=== PATIENT | male | born 1975 | race African-American/Black ===

== ENCOUNTER 2019-11-18 16:34 | Emergency (ER) | payer OTHER ==
--- NOTE | 2019-11-18 18:00 | PDOC ---
History of Present Illness - General Chief Complaint: Suicidal Stated Complaint: TOO MUCH ECSTASY Time Seen by Provider: 11/18/19 16:37 - History of Present Illness Initial Comments: 11/18/19 17:50 44yo M BIBEMS after he called 911 complaining that he took "too much ecstasy," and he now endorses, SI/HI and auditory/visual hallucinations. He states he normally takes two ecstasy pills per day, and took 3 yesterday and 2 this mo rning. He also reports cannabis use. He occasionally takes benzodiazapines given to him by his moither for "anxiety," which he states he gets sometijmes when he takes too much ecstacy. At present, he endorses SI without at plan, and well as HI without plan. He endorses AH of people chasing after him to hurt him, and VH of him hurting other people and "crushing their bones." ROS torres-positive. States he recently became homeless because of his drug use. States he was admitted for detox on [facility] a few years ago, but does not follow up with any doctors currently. PMH/PSH: as above Meds/Allergies: denies ROS: torres positive PE GENERAL: Awake, alert, and fully oriented, in no acute distress, intoxicated HEAD: No signs of trauma, normocephalic, atraumatic EYES: PERRLA, EOMI, sclera anicteric, conjunctiva clear ENT: Auricles normal inspection, hearing grossly normal, nares patent, orophary nx clear without exudates. Moist mucosa NECK: Normal ROM, supple, no lymphadenopathy, JVD, or masses LUNGS: No distress, speaks full sentences, clear to auscultation bilaterally HEART: Regular rate and rhythm, normal S1 and S2, no murmurs, rubs or gallops, peripheral pulses normal and equal bilaterally. ABDOMEN: Soft, nontender, normoactive bowel sounds. No guarding, no rebound. No masses EXTREMITIES : Normal inspection, Normal range of motion, no edema. No clubbing or cyanosis. NEUROLOGICAL: Cranial nerves II through XII grossly intact. Normal speech, no focal sensorimotor deficits. No rigidity, hyperreflexia, or clonus. SKIN: Warm, Dry, normal turgor, no rashes or lesions noted Vital Signs Temp Pulse Resp BP Pulse Ox 98.6 F 92 H 20 154/101 H 100 11/18/19 16:47 11/18/19 16:47 11/18/19 16:47 11/18/19 16:47 11/18/19 16:47 44yo M BIBEMS after he called 911 complaining that he took "too much ecstasy," and he now endorses, SI/HI and auditory/visual hallucinations. Vitals reassuring. No clinical signs of serotonin syndrome or NMS. Differential includes acute intoxication vs. psychogenic SI/HI and hallucinations. -EKG -Labs: CBC, CMP, trops, coags, UA, drug screen, alcohol, salicylates, acetaminophen -1000ml NS -Ativan 2mg PO EKG NSR, rate 67, normal axis and intervals, no ST or T wave changes Patient states to the attending that he does not have SI/HI or hallucinations and just called 911 and came in because he wants rehab. 11/19/19 00:03 Patient is s/p 2mg PO ativan and is sleeping. Tried waking him to reasess, but he was very drowsy. Repeat vitals Last Vital Signs Temp Pulse Resp BP Pulse Ox 98.6 F 68 18 96/64 99 11/18/19 16:47 11/18/19 23:38 11/18/19 23:38 11/18/19 23:38 11/18/19 23:38 Will give another liter of fluids. Dispo pending reassessment. Psych vs. outpatient rehab Signed out to night team 11/19/19 00:06 Past History - Medical History Allergies/Adverse Reactions: Allergies Allergy/AdvReac Type Severity Reaction Status Date / Time No Known Allergies Allergy Verified 11/18/19 16:46 Home Medications: Ambulatory Orders clonazePAM [Klonopin -] mg PO PRN PRN 11/18/19 COPD: No - Psycho-Social/Smoking History Smoking History: Current some day smoker Information on smoking cessation initiated: No - Substance Abuse Hx (Audit-C & DAST Scrn) How often the patient has a drink containing alcohol: 2-4 times / month Number of drinks the patient has on a typical day: 5 or 6 How often the patient has six or more drinks on one occasion: Less than monthly Score: In Men: 4 or > Positive; In Women: 3 or > Positive: 5 Screen Result (Pos requires Nsg. Audit-10AR): Positive In the last yr the pt used illegal drug/Rx for NonMed reason: Yes Score: Yes response is considered Positive: 1 Screen Result (Positive result requires Nsg. DAST-10): Positive *Physical Exam - Vital Signs Last Vital Signs Temp Pulse Resp BP Pulse Ox 98.6 F 92 H 20 154/101 H 100 11/18/19 16:47 11/18/19 16:47 11/18/19 16:47 11/18/19 16:47 11/18/19 16:47 ED Treatment Course - LABORATORY CBC & Chemistry Diagram: 11/18/19 18:02 11/18/19 18:02 Discharge - Discharge Information Problems reviewed: Yes Clinical Impression/Diagnosis: MDMA abuse - Follow up/Referral - Patient Discharge Instructions - Post Discharge Activity Work/Back to School Note: My Personal Safety Plan
[2019-11-18] MEDS ORDERED: SODIUM CHLORIDE 0.9% 500 ML INFUS.BAG IV ONE ×2 (18:06→19:39)
[2019-11-18 18:10] LABS: BASO % 0.4 % (0-2.0); EOS % 0.8 % (0-4.5); HEMATOCRIT 44.3 % (35.4-49); HEMOGLOBIN 15.1 GM/dL (11.7-16.9); MCHC 34.1 g/dl (32.0-35.9); MEAN CELL VOLUME 93.9 fl (80-96); MEAN PLT VOLUME 7.8 fl (7.5-11.1); MONO % 8.5 % (3.8-10.2); NEUT % 65.3 % (42.8-82.8); PLATELET COUNT 186 K/MM3 (134-434); RBC 4.72 M/mm3 (4.00-5.60); RDW 12.8 % (11.9-15.9); WHITE BLOOD COUNT 6.8 K/mm3 (4.0-10.0)
[2019-11-18] MEDS ORDERED: LORazepam 1 MG TABLET PO ONE (18:22)
[2019-11-18] MEDS ORDERED: LORazepam 0.5 MG TABLET ONE (18:23)
[2019-11-18 19:04] LABS: ALBUMIN 3.9 g/dl (3.4-5.0); ALK PHOS 53 U/L (45-117); ANION GAP 7 MMOL/L (8-16); BILIRUBIN,TOTAL 0.4 mg/dL (0.2-1); BLOOD UREA NITROGEN 19.9 mg/dL (7-18); CALCIUM 8.7 mg/dL (8.5-10.1); CHLORIDE 108 mmol/L (98-107); CO2 28 mmol/L (21-32); CREATININE 1.2 mg/dL (0.55-1.3); GLUCOSE,RANDOM 80 mg/dL (74-106); POTASSIUM 3.6 mmol/L (3.5-5.1); SGOT/AST 17 U/L (15-37); SGPT/ALT 35 U/L (13-61); SODIUM 142 mmol/L (136-145); TOT PROT 7.2 g/dl (6.4-8.2)
[2019-11-18 21:14] LABS: INR 0.98 (0.83-1.09); PROTHROMBIN TIME (PATIENT) 11.6 SEC (9.7-13.0)
[2019-11-18 21:16] LABS: ACTIVATED PTT 32.1 SECONDS (25.2-36.5)
--- NOTE | 2019-11-19 00:06 | PDOC ---
*Physical Exam - Vital Signs Last Vital Signs Temp Pulse Resp BP Pulse Ox 98.6 F 68 18 96/64 99 11/18/19 16:47 11/18/19 23:38 11/18/19 23:38 11/18/19 23:38 11/18/19 23:38 ED Treatment Course - LABORATORY CBC & Chemistry Diagram: 11/18/19 18:02 11/18/19 18:02 - ADDITIONAL ORDERS Additional order review: Laboratory Results 11/18/19 11/18/19 11/18/19 18:02 18:02 18:02 PT with INR 11.60 INR 0.98 PTT (Actin FS) 32.1 Sodium 142 Potassium 3.6 Chloride 108 H Carbon Dioxide 28 Anion Gap 7 L BUN 19.9 H Creatinine 1.2 Est GFR (CKD-EPI)AfAm 85.92 Est GFR (CKD-EPI)NonAf 74.14 Random Glucose 80 Calcium 8.7 Total Bilirubin 0.4 AST 17 ALT 35 Alkaline Phosphatase 53 Creatine Kinase 132 Troponin I < 0.02 Total Protein 7.2 Albumin 3.9 Salicylates 2.3 L Acetaminophen < 2 Alcohol, Quantitative < 3 11/18/19 18:02 RBC 4.72 MCV 93.9 MCHC 34.1 RDW 12.8 MPV 7.8 Neutrophils % 65.3 Lymphocytes % 25.0 Monocytes % 8.5 Eosinophils % 0.8 Basophils % 0.4 - Medications Given in the ED: ED Medications Discontinued Medications Generic Name Dose Route Start Last Admin Trade Name Freq PRN Reason Stop Dose Admin Lorazepam 2 mg 11/18/19 18:18 11/18/19 18:27 Ativan Injection - IVPUSH 11/18/19 18:19 Not Given ONCE ONE Lorazepam 2 mg 11/18/19 18:22 11/18/19 18:27 Ativan - PO 11/18/19 18:23 2 mg ONCE ONE Administration Sodium Chloride 1,000 ml 11/18/19 18:06 11/18/19 18:48 Normal Saline - IV 11/18/19 18:07 Not Given ONCE ONE Sodium Chloride 1,000 ml 11/18/19 19:39 11/18/19 20:22 Normal Saline - IV 11/18/19 19:40 1,000 ml ONCE ONE Administration Medical Decision Making - Medical Decision Making 11/19/19 00:05 Signed out from day team EKG - NSR, rate 67, normal axis and intervals, no ST or T wave changes --- 44yo M presenting w esctacy abuse, SI/HI and auditory/visual hallucinations. Vitals reassuring. No clinical signs of serotonin syndrome or NMS Given 3L fluids, 2 ativan Tried waking him to reasess after given ativan, but he was very drowsy overnight Re-examined 6am 11/18, pt is clinically sober, non slurring words, AOx3. Denies SI/HI/hallucinations . Prior mentions likely 2/2 drug induced psychosis Signed out to day team - DC home after talking w social work. Pt is open to rehab Discharge - Discharge Information Problems reviewed: Yes Clinical Impression/Diagnosis: MDMA abuse Condition: Improved - Follow up/Referral - Patient Discharge Instructions - Post Discharge Activity Work/Back to School Note: My Personal Safety Plan
[2019-11-19] MEDS ORDERED: DEXTROSE 5%-NORMAL SALINE 1,000 ML IV SCH (02:15)
--- NOTE | 2019-11-19 08:13 | PDOC ---
*Physical Exam - Vital Signs Last Vital Signs Temp Pulse Resp BP Pulse Ox 98.6 F 68 16 116/78 99 11/18/19 16:47 11/19/19 07:20 11/19/19 07:20 11/19/19 07:20 11/19/19 07:20 ED Treatment Course - LABORATORY CBC & Chemistry Diagram: 11/18/19 18:02 11/18/19 18:02 - ADDITIONAL ORDERS Additional order review: Laboratory Results 11/18/19 18:02 PT with INR 11.60 INR 0.98 PTT (Actin FS) 32.1 11/18/19 18:02 RBC 4.72 MCV 93.9 MCHC 34.1 RDW 12.8 MPV 7.8 Neutrophils % 65.3 Lymphocytes % 25.0 Monocytes % 8.5 Eosinophils % 0.8 Basophils % 0.4 - Medications Given in the ED: ED Medications Discontinued Medications Generic Name Dose Route Start Last Admin Trade Name Rafael PRN Reason Stop Dose Admin Lorazepam 2 mg 11/18/19 18:18 11/18/19 18:27 Ativan Injection - IVPUSH 11/18/19 18:19 Not Given ONCE ONE Lorazepam 2 mg 11/18/19 18:22 11/18/19 18:27 Ativan - PO 11/18/19 18:23 2 mg ONCE ONE Administration Sodium Chloride 1,000 ml 11/18/19 18:06 11/18/19 18:48 Normal Saline - IV 11/18/19 18:07 Not Given ONCE ONE Sodium Chloride 1,000 ml 11/18/19 19:39 11/18/19 20:22 Normal Saline - IV 11/18/19 19:40 1,000 ml ONCE ONE Administration Medical Decision Making - Medical Decision Making 11/19/19 00:05 Signed out from day team EKG - NSR, rate 67, normal axis and intervals, no ST or T wave changes --- 44yo M presenting w esctacy abuse, SI/HI and auditory/visual hallucinations. Vitals reassuring. No clinical signs of serotonin syndrome or NMS Given 3L fluids, 2 ativan Tried waking him to reasess after given ativan, but he was very drowsy overnight Re-examined 6am 11/18, pt is clinically sober, non slurring words, AOx3. Denies SI/HI/hallucinations . Prior mentions likely 2/2 drug induced psychosis Signed out to day team DC home after talking w social work. Pt is open to rehab 11/19/19 07:15 Signed out from night team Spoke to social work and instructed to speak with Dr. Soares at [facility]. Dr. Soares stated that since the patient did not have a [place] address that they wouldn't be able to accept him but that he was able to walk into [facility] and they would refer him to another rehab center. Patient is safe for discharge for transport to [facility]. Discharge - Discharge Information Problems reviewed: Yes Clinical Impression/Diagnosis: MDMA abuse Condition: Improved Disposition: TRANSFER ACUTE CARE/OTHER HOSP - Admission No - Follow up/Referral - Patient Discharge Instructions Patient Printed Discharge Instructions: DI for Suicidal Ideation-Adult Additional Instructions: You came into the ED yesterday because of MDMA intoxication with suicidal ideati on. After given medication to help with the anxiety and some sleep you felt improved and stated you no longer felt suicidal, however you stated that you would like to be admitted to rehab. Your blood work was normal. Return to the ED if you begin to have thoughts of suicide again. - Post Discharge Activity Work/Back to School Note: My Personal Safety Plan
--- NOTE | 2019-11-19 17:57 | HP ---
CIWA Score Nausea/Vomitin-No Nausea/No Vomiting Muscle Tremors: 1-None Visible, but [place] Anxiety: 1-Mildly Anxious Agitation: 0-Normal Activity Paroxysmal Sweats: No Perspiration Orientation: 0-Oriented Tacttile Disturbances: 0-None Auditory Disturbances: 0-None Visual Disturbances: 0-None Headache: 0-None Present CIWA-Ar Total Score: 2 - Admission Criteria OASAS Guidelines: Admission for Medically Managed Detox: Requires at least one of the followin. CIWA greater than 12 2. Seizures within the past 24 hours 3. Delirium tremens within the past 24 hours 4. Hallucinations within the past 24 hours 5. Acute intervention needed for co occurring medical disorder 6. Acute intervention needed for co occurring psychiatric disorder 7. Severe withdrawal that cannot be handled at a lower level of care (continued vomiting, continued diarrhea, abnormal vital signs) requiring intravenous medication and/or fluids 8. Admitting History and Physical - Admission Chief Complaint: Detox from amphetamines, THC, Benzos, alcohol History of Present Illness: Patient is a 44 y.o. M. Patient was examine din the room and is no acute distress. Ptient is here due to alcohol, THC, methamphetamines and benzos abuse. History Source: Patient Limitations to Obtaining History: No Limitations - Smoking History Smoking history: Current some day smoker - Alcohol/Substance Use Hx Alcohol Use: Yes Number of Drinks Daily: 2 History of Substance Use: reports: Marijuana - Social History Usual Living Arrangement: Yes: Other (Friends) ADL: Independent Occupation: Contruction History of Recent Travel: No Admission ROS [facility] Chief Complaint: Alcohol, THC, Amphetamines, benzo dependence. Allergies/Adverse Reactions: Allergies Allergy/AdvReac Type Severity Reaction Status Date / Time No Known Allergies Allergy Verified 11/18/19 16:46 - Ebola screening Have you traveled outside of the country in the last 21 days: No Have you had contact with anyone from an Ebola affected area: No Have you been sick,other than usual withdrawal symptoms: No Do you have a fever: No - Review of Systems Constitutional: Chills, Loss of Appetite, Changes in sleep EENT: reports: No Symptoms Reported Respiratory: reports: Cough. denies: Shortness of Breath Cardiac: denies: Chest Pain GI: reports: Constipated, Diarrhea, Nausea, Poor Appetite. denies: Vomiting Neuro: reports: Weakness, Dizziness Psychiatric: reports: Orientated x3 Patient History - Patient Medical History Hx Chronic Obstructive Pulmonary Disease (COPD): No - Smoking Cessation Smoking history: Current some day smoker Initiated information on smoking cessation: No Admission Physical Exam BHS - Vital Signs Vital Signs: Vital Signs - 24 hr 11/18/19 11/18/19 11/18/19 20:23 20:29 23:38 Temperature Pulse Rate [ 76 68 Right Radial] Respiratory 19 18 Rate Blood Pressure [Left Arm] Blood Pressure 94/56 L 96/64 [Right Arm] O2 Sat by Pulse 98 100 99 Oximetry (%) 11/19/19 11/19/19 11/19/19 02:24 07:20 11:17 Temperature 96.3 F L Pulse Rate [ 62 68 81 Right Radial] Respiratory 17 16 18 Rate Blood Pressure 119/77 [Left Arm] Blood Pressure 120/70 116/78 [Right Arm] O2 Sat by Pulse 99 99 98 Oximetry (%) - Physical General Appearance: Yes: No Apparent Distress, Appropriately Dressed Respiratory: Yes: Lungs Clear, Normal Breath Sounds, No Respiratory Distress, No Accessory Muscle Use Cardiology: Yes: Regular Rhythm, Regular Rate Abdominal: Yes: Normal Bowel Sounds, Non Tender, Soft Vital Signs - Vital Signs Vital signs refused: No Temperature: 97.8 F Pulse Rate: 103 Respiratory Rate: 18 Blood Pressure: 126/88 Blood Pressure position: Sitting - Height Height: 1.7 m - Weight Weight: 190 kg - BMI Body Mass Index (BMI): 65.6 Inpatient Rehab Admission - Rehab Decision to Admit Inpatient rehab admission?: No
[2019-11-19 18:05] VITALS: BP 126/88; PULSE 103; TEMP 97.8; BMI 65.6
--- NOTE | 2019-11-19 18:23 | EKG ---
Test Reason : Blood Pressure : / mmHG Vent. Rate : 067 BPM Atrial Rate : 067 BPM P-R Int : 152 ms QRS Dur : 086 ms QT Int : 378 ms P-R-T Axes : 060 064 041 degrees QTc Int : 399 ms NORMAL SINUS RHYTHM NORMAL ECG NO PREVIOUS ECGS AVAILABLE Confirmed by MARYA SHAH MD ([id number]) on 11/19/2019 6:23:04 PM Referred By: Confirmed By:MARYA SHAH MD
--- NOTE | 2019-11-19 23:47 | PDOC ---
Documentation entered by Juan Steni SCRIBE, acting as scribe for Johnnie Grullon DO. Johnnie Grullon DO: This documentation has been prepared by the Emil irvin Alexis, SCRIBE, under my direction and personally reviewed by me in its entirety. I confirm that the documentation accurately reflects all work, treatment, procedures, and medical decision making performed by me. Attending Attestation - Resident Resident Name: TahiraJose - ED Attending Attestation I have performed the following: I have examined & evaluated the patient, The case was reviewed & discussed with the resident, I agree w/resident's findings & plan, Exceptions are as noted - HPI HPI: 11/18/19 18:27 The patient is a 44 year old male coming in today after intentionally overdosing on ecstasy. The patient states he normally takes 2 pills of ecstasy per day but today took 2.5 pills. The patient states he wants help. The patient reports feeling helpless with his addiction and would like to go to rehab. He has passive suicidal ideation without a plan. Denies any specific homicidal ideation but would like to crush the bones of others without a specific person in mind. - Physicial Exam PE: 11/18/19 18:28 Intoxicated A and o x4 Non Delirious Mild hypertension borderline tachy Afebrile Well appearing otherwise Normal exam otherwise Psych: Intoxicated and appears to be hallucinating likely secondary to his ingestion No clonus on exam - Medical Decision Making 11/18/19 18:28 A and P 44 yo male with drug induced psychosis and hallucination Plan: IV hydration Treat with ativan for hypotension and psychomotor agitation Will reassess when clinically sober EKG Normal sinus rhythm at 67 normal axis and interval No acute ischemia Time: 1800 Plan for medical clearance, monitoring IVF and reassesment in am by psych once clinically sober. Signed out to night team Discharge - Discharge Information Problems reviewed: Yes Clinical Impression/Diagnosis: MDMA abuse Condition: Improved Disposition: TRANSFER ACUTE CARE/OTHER HOSP - Follow up/Referral - Patient Discharge Instructions Patient Printed Discharge Instructions: DI for Suicidal Ideation-Adult Additional Instructions: You came into the ED yesterday because of MDMA intoxication with suicidal ideation. After given medication to help with the anxiety and some sleep you felt improved and stated you no longer felt suicidal, however you stated that you would like to be admitted to rehab. Your blood work was normal. Return to the ED if you begin to have thoughts of suicide again. - Post Discharge Activity Work/Back to School Note: My Personal Safety Plan
== END 2019-11-19 14:21 | disposition short-term general hospital (02) ==
LOC: JER 16:34
DX: F16.10 Hallucinogen abuse, uncomplicated (principal)
CPT/HCPCS: 36415; 80053; 80307; 82550; 84484; 85025; 85610; 85730; 93005; 93010; 99284-25

== ENCOUNTER 2019-11-19 15:05 | Inpatient (IN) | payer OTHER ==
[2019-11-19] MEDS ORDERED: MENTHOL/PHENOL 1 EACH UD MM PRN (18:22)
[2019-11-19] MEDS ORDERED: IBUPROFEN 400 MG TABLET (FP) PO PRN (18:22)
[2019-11-19] MEDS ORDERED: NICOTINE POLACRILEX 2 MG GUM BUC PRN (18:22)
[2019-11-19] MEDS ORDERED: MAGNESIUM HYDROX 2400MG/30ML ORAL SUSPENSION 30 ML CUP PO PRN (18:22)
[2019-11-19] MEDS ORDERED: MAGNESIUM CITRATE 300 ML BOTTLE PO PRN (18:22)
[2019-11-19] MEDS ORDERED: BISMUTH SUBSALICYLATE 524 MG/30 ML UD PO PRN (18:22)
[2019-11-19] MEDS ORDERED: MAG HYDROX/AL HYDROX/SIMETH 30 ML UNIT-DOSE CUP PO PRN (18:22)
[2019-11-19] MEDS ORDERED: ACETAMINOPHEN 325 MG TABLET (FP) PO PRN ×2 (18:22)
[2019-11-19] MEDS ORDERED: METHOCARBAMOL 500 MG TABLET PO PRN (18:22)
[2019-11-19] MEDS ORDERED: ONDANSETRON *ODT* 4 MG TABLET SL ONE (18:45)
[2019-11-19 18:48] VITALS: BMI 29.7
--- NOTE | 2019-11-19 19:26 | HP ---
<Jason Hobbs - Last Filed: 11/19/19 19:31> CIWA Score Nausea/Vomitin-No Nausea/No Vomiting Muscle Tremors: None Anxiety: 2 Agitation: 0-Normal Activity Paroxysmal Sweats: No Perspiration Orientation: 0-Oriented Tacttile Disturbances: 0-None Auditory Disturbances: 0-None Visual Disturbances: 0-None Headache: 0-None Present CIWA-Ar Total Score: 2 - Admission Criteria OASAS Guidelines: Admission for Medically Managed Detox: Requires at least one of the followin. CIWA greater than 12 2. Seizures within the past 24 hours 3. Delirium tremens within the past 24 hours 4. Hallucinations within the past 24 hours 5. Acute intervention needed for co occurring medical disorder 6. Acute intervention needed for co occurring psychiatric disorder 7. Severe withdrawal that cannot be handled at a lower level of care (continued vomiting, continued diarrhea, abnormal vital signs) requiring intravenous medication and/or fluids 8. Admitting History and Physical - Admission Chief Complaint: Detox History of Present Illness: Patient is a 44 y.o. M presenting to [facility] for detox. Patient was examined in the room by bedside in no acute distress. Patient states he is her due to his drug use. Patient uses Alcohol (liquor) and has 2-3 drinks per day. Pt. also uses crack 5gs daily and ecstasy 2 pills daily. History Source: Patient Limitations to Obtaining History: No Limitations - Smoking History Smoking history: Current some day smoker Have you smoked in the past 12 months: Yes Aproximately how many cigarettes per day: 20 - Alcohol/Substance Use Hx Alcohol Use: Yes Number of Drinks Daily: 2 - Social History Usual Living Arrangement: Yes: Other (Living with friends) ADL: Independent Occupation: Construction History of Recent Travel: No Admission ROS [facility] Allergies/Adverse Reactions: Allergies Allergy/AdvReac Type Severity Reaction Status Date / Time mayonnaise Allergy Mild Nausea Verified 11/19/19 18:33 No Known Drug Allergies Allergy Verified 11/19/19 18:33 Exam Limitations: No Limitations - Ebola screening Have you traveled outside of the country in the last 21 days: No Have you had contact with anyone from an Ebola affected area: No Have you been sick,other than usual withdrawal symptoms: No Do you have a fever: No - Review of Systems Constitutional: No Symptoms Reported Respiratory: reports: No Symptoms reported Cardiac: reports: No Symptoms Reported GI: reports: No Symptoms Reported Neuro: reports: No Symptoms reported Psychiatric: reports: Orientated x3 Patient History - Patient Medical History Hx Asthma: No Hx Chronic Obstructive Pulmonary Disease (COPD): No Hx Cardiac Disorders: No Hx Hypertension: Yes Hx Seizures: No Hx Diabetes: No Hx Gastrointestinal Disorders: No Hx Genitourinary Disorders: No Hx Sexually Transmitted Disorders: No Hx Renal Disease (ESRD): No Hx Depression: Yes Hx Suicide Attempt: No Hx Schizophrenia: No - Patient Surgical History Past Surgical History: No Hx Neurologic Surgery: No Hx Cataract Extraction: No Hx Cardiac Surgery: No Hx Lung Surgery: No Hx Breast Surgery: No Hx Breast Biopsy: No Hx Abdominal Surgery: No Hx Appendectomy: No Hx Cholecystectomy: No Hx Genitourinary Surgery: No Hx Section: No Hx Orthopedic Surgery: No Anesthesia Reaction: No - PPD History Previous Implant?: Yes Documented Results: Negative w/o proof Implanted On Prior R Admission?: No - Smoking Cessation Smoking history: Current some day smoker Have you smoked in the past 12 months: Yes Aproximately how many cigarettes per day: 20 Hx Chewing Tobacco Use: No Initiated information on smoking cessation: Yes 'Breaking Loose' booklet given: 11/19/19 - Substances abused Alcohol Substance route: Oral Frequency: Daily Amount used: 5 cups Age of first use: 24 Date of last use: 11/18/19 Crack Substance route: Smoking Frequency: Daily Amount used: 5 gm Age of first use: 34 Date of last use: 11/17/19 Ectasy Substance route: Oral Frequency: Daily Amount used: 3 tab Age of first use: 17 Date of last use: 11/17/19 Non-Rx Methadone Substance route: Oral Frequency: Daily Amount used: 25 mg Date of last use: 11/14/19 Admission Physical Exam BHS - Vital Signs Vital Signs: Vital Signs - 24 hr 11/19/19 18:36 Temperature 97.8 F Pulse Rate 103 H Respiratory 18 Rate Blood Pressure 126/88 - Physical General Appearance: Yes: Within Normal Limits, No Apparent Distress, Nourished, Appropriately Dressed Respiratory: Yes: Within Normal Limits, Lungs Clear, Normal Breath Sounds, No Accessory Muscle Use Cardiology: Yes: Regular Rhythm, Regular Rate Abdominal: Yes: Within Normal Limits, Normal Bowel Sounds, Non Tender, Soft Extremities: Yes: Within Normal Limits, Normal Inspection, Non-Tender Integumentary: Yes: Within Normal Limits, Normal Color, Warm Breathalyzer - Breathalyzer Breathalyzer: 0 Vital Signs - Vital Signs Vital signs refused: No Temperature: 97.8 F Pulse Rate: 103 Respiratory Rate: 14 Blood Pressure: 126/88 - Height Height: 5 ft 7 in - Weight Weight: 190 lb - BMI Body Mass Index (BMI): 29.7 Inpatient Rehab Admission - Rehab Decision to Admit Inpatient rehab admission?: No <Randall Soares - Last Filed: 11/21/19 08:22> CIWA Score - Admission Criteria OASAS Guidelines: Admission for Medically Managed Detox: Requires at least one of the followin. CIWA greater than 12 2. Seizures within the past 24 hours 3. Delirium tremens within the past 24 hours 4. Hallucinations within the past 24 hours 5. Acute intervention needed for co occurring medical disorder 6. Acute intervention needed for co occurring psychiatric disorder 7. Severe withdrawal that cannot be handled at a lower level of care (continued vomiting, continued diarrhea, abnormal vital signs) requiring intravenous medication and/or fluids 8. Admission Physical Exam BHS - Vital Signs Vital Signs: Vital Signs - 24 hr 11/20/19 11/20/19 11/20/19 08:37 12:32 16:48 Temperature 98.2 F 98.1 F 97.4 F L Pulse Rate 70 70 78 Respiratory 18 18 18 Rate Blood Pressure 102/74 107/76 118/79 O2 Sat by Pulse 96 Oximetry (%) 11/20/19 11/21/19 20:53 05:43 Temperature 98.0 F 97.7 F Pulse Rate 69 85 Respiratory 18 20 Rate Blood Pressure 136/94 109/79 O2 Sat by Pulse 99 99 Oximetry (%) - Physical General Appearance: Yes: Within Normal Limits, No Apparent Distress, Nourished, Appropriately Dressed HEENTM: Yes: EOMI, Hearing grossly Normal, Normal ENT Inspection, Normocephalic, Normal Voice, ALEX, Tm's normal Respiratory: Yes: Within Normal Limits, Lungs Clear, Normal Breath Sounds, No Accessory Muscle Use Neck: Yes: No masses,lesions,Nodules, Supple, Trachea in good position Breast: Yes: Within Normal Limits Cardiology: Yes: Regular Rhythm, Regular Rate Abdominal: Yes: Normal Bowel Sounds, Non Tender, Soft Genitourinary: Yes: Within Normal Limits Back: Yes: Normal Inspection Musculoskeletal: Yes: full range of Motion, Gait Steady, Pelvis Stable Extremities: Yes: Within Normal Limits, Normal Inspection, Non-Tender Neurological: Yes: wheelchair rental clerk II-XII NML intact, Fully Oriented, Alert, Motor Strength 5/5, Normal Mood/Affect, Normal Response Integumentary: Yes: Within Normal Limits, Normal Color, Warm Lymphatic: Yes: Within Normal Limits - Diagnostic (1) Alcohol use disorder Current Visit: Yes Status: Chronic (2) Cannabis dependence Current Visit: Yes Status: Chronic (3) Cocaine use disorder Current Visit: Yes Status: Chronic (4) MDMA abuse Current Visit: Yes Status: Chronic (5) Nicotine dependence Current Visit: Yes Status: Chronic (6) Substance induced mood disorder Current Visit: Yes Status: Chronic Cleared for Admission [facility] - Detox or Rehab [facility] Level of Care: Medically Managed Detox Regimen/Protocol: Librium Claeared for Rehab Admission: No Screened but not Admitted - Documentation of Visit Screened but not Admitted: No Inpatient Rehab Admission - Rehab Decision to Admit Inpatient rehab admission?: No
[2019-11-19] MEDS: diazePAM 5 MG TABLET PO PRN (19:41)
[2019-11-19] MEDS: MELATONIN 5 MG TABLETS PO SCH (23:13)
[2019-11-19] MEDS: diazePAM 5 MG TABLET PO SCH (23:13)
[2019-11-19] MEDS: hydrOXYzine PAMOATE 25 MG CAPSULE (FP) PO SCH (23:13)
[2019-11-19] MEDS: THIAMINE HCL 100 MG TABLET (FP) PO SCH (23:13)
[2019-11-20] MEDS: diazePAM 5 MG TABLET PO SCH ×3 (06:05→22:44)
[2019-11-20] MEDS: hydrOXYzine PAMOATE 25 MG CAPSULE (FP) PO SCH ×5 (06:05→22:44)
[2019-11-20] MEDS: diazePAM 5 MG TABLET PO PRN (10:18)
[2019-11-20] MEDS: PRENATAL VITAMINS W/ FOLIC ACID TABLET (FP) PO SCH (10:18)
[2019-11-20] MEDS: NICOTINE 7 MG/24 HOURS TOPICAL PATCH TD SCH (10:19)
--- NOTE | 2019-11-20 10:57 | CONSULT ---
[facility] Psychiatric Consult - Data Date of interview: 11/20/19 Admission source: [facility] Identifying data: First visit to [facility] (referred from [facility] emergency department where patient was seen for complaints of auditory hallucinations + paranoid ideation + vague thoughts of violence towards others) and admission to [address] [place] [address] for detoxification treatment. GREGG issues : alcohol, cannabis, ecstazy, nicotine, crystal methamphetamine). Patient is , a father of two, home less, unemployed (trained as an artist) and currently deprived of any form of financial assistance. Substance Abuse History: Discussed with the patient. GREGG profile as follows : Smoking history: Current some day smoker. Have you smoked in the past 12 months: Yes. Aproximately how many cigarettes per day: 20. Hx Chewing Tobacco Use: No. Initiated information on smoking cessation: Yes. 'Breaking Loose' booklet given: 11/19/19. - Substances abused. Alcohol. Substance route: Oral. Frequency: Daily. Amount used: 5 cups. Age of first use: 24. Date of last use: 11/18/19. Crack. Substance route: Smoking. Frequency: Daily. Amount used: 5 gm. Age of first use: 34. Date of last use: 11/17/19. Ectasy. Substance route: Oral. Frequency: Daily. Amount used: 3 tab. Age of first use: 17. Date of last use: 11/17/19. Non-Rx Methadone. Substance route: Oral. Frequency: Daily. Amount used: 25 mg. Date of last use: 11/14/19. Patient has also endorsed sporadic use of LSD and crystal methamphetamine. Medical History: Patient reports good general health. Noted report of hypertension. Psychiatric History: Patient denies history of psychiatric hospitalizations. He admits, however, to one year of psychiatric [facility] care (name of institution is not recalled) to address depression + anxiety. Mr Boo indicates that he was prescribed some medications (name not remembered) that he took for " a couple of months " until he completely dropped out of treatment. Patient denies history of suicide attempts. 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 Additional Comment: No toxicology screen for review. Mental Status Exam - Mental Status Exam Alert and Oriented to: Time, Place, Person Cognitive Function: Good Patient Appearance: Well Groomed (short stature, muscular habitus) Mood: Withdrawn, Hopeful Affect: Appropriate, Normal Range Patient Behavior: Fatigued, Talkative, Appropriate (friendly on approach), Cooperative Speech Pattern: Clear, Appropriate (bilingual) Voice Loudness: Normal Thought Process: Intact, Goal Oriented Thought Disorder: Not Present Hallucinations: Denies Suicidal Ideation: Denies Homicidal Ideation: Denies Insight/Judgement: Poor Sleep: Well Appetite: Good Gait/Station: Normal Psychiatric Findings - Problem List ([place] 1, 2,3) (1) Alcohol use disorder Current Visit: Yes Status: Chronic (2) MDMA abuse Current Visit: Yes Status: Chronic (3) Cocaine use disorder Current Visit: Yes Status: Chronic (4) Cannabis dependence Current Visit: Yes Status: Chronic (5) Nicotine dependence Current Visit: Yes Status: Chronic (6) Substance induced mood disorder Current Visit: Yes Status: Chronic - Initial Treatment Plan Initial Treatment Plan: Psychoeducation and motivational counseling. Sleep hygiene. Detoxification in progress. Support. Patient is agreeable with plan to enter rehabilitation after completion of this detoxification protocol. Benefits of MAT-ETOH options discussed with patient. Observation.
--- NOTE | 2019-11-20 13:54 | PN ---
S CIWA - CIWA Score Nausea/Vomitin-Mild Nausea/No Vomiting Muscle Tremors: 3 Anxiety: 2 Agitation: 1-Slight > Activity Paroxysmal Sweats: 1-Minimal Palms Moist Orientation: 0-Oriented Tacttile Disturbances: 1-Very Mild Itch/Numbness Auditory Disturbances: 0-None Visual Disturbances: 2-Mild Sensitivity Headache: 1-Very Mild CIWA-Ar Total Score: 12 BHS Progress Note (SOAP) Subjective: 44 years old male was admitted on 11/19/19 for alcohol withdrawal sx management treating with valium detox regiment ate breakfast and lunch in room resting in bed feels tired prefers to stay in bed today limited conversation with staff Objective: 11/20/19 14:04 Vital Signs - 24 hr 11/19/19 11/19/19 11/19/19 18:36 19:31 19:40 Temperature 97.8 F 97.8 F 98.7 F Pulse Rate 103 H 103 H 70 Respiratory 18 14 18 Rate Blood Pressure 126/88 126/88 126/84 O2 Sat by Pulse 100 Oximetry (%) 11/19/19 11/20/19 11/20/19 20:17 06:02 08:37 Temperature 98 F 98.0 F 98.2 F Pulse Rate 79 62 70 Respiratory 18 18 18 Rate Blood Pressure 127/88 108/75 102/74 O2 Sat by Pulse 99 97 Oximetry (%) 11/20/19 12:32 Temperature 98.1 F Pulse Rate 70 Respiratory 18 Rate Blood Pressure 107/76 O2 Sat by Pulse 96 Oximetry (%) 11/20/19 14:06 mr márquez was treated in ER for substance over dose on 11/18/19 medically appropriated for alcohol detox transferred to [facility] for detox on 11/19/19 Assessment: 11/20/19 14:07 alcohol withdrawal Plan: valium regiment
[2019-11-20] MEDS: THIAMINE HCL 100 MG TABLET (FP) PO SCH (22:44)
[2019-11-20] MEDS: MELATONIN 5 MG TABLETS PO SCH (22:45)
[2019-11-21] MEDS: hydrOXYzine PAMOATE 25 MG CAPSULE (FP) PO SCH ×5 (06:08→22:43)
[2019-11-21] MEDS: diazePAM 5 MG TABLET PO SCH ×2 (06:09→21:25)
--- NOTE | 2019-11-21 09:05 | PN ---
Teaching Attending Note Name of Resident: Jason Hobbs ATTENDING PHYSICIAN STATEMENT I saw and evaluated the patient. I reviewed the resident's note and discussed the case with the resident. I agree with the resident's findings and plan as documented. SUBJECTIVE: OBJECTIVE: ASSESSMENT AND PLAN: Agree with resident's findings and plans for detox. Problem List - Problems (1) Alcohol use disorder Code(s): TKN8924 - (2) Cannabis dependence Code(s): F12.20 - CANNABIS DEPENDENCE, UNCOMPLICATED (3) Cocaine use disorder Code(s): F14.10 - COCAINE ABUSE, UNCOMPLICATED (4) MDMA abuse Code(s): F16.10 - HALLUCINOGEN ABUSE, UNCOMPLICATED (5) Nicotine dependence Code(s): F17.200 - NICOTINE DEPENDENCE, UNSPECIFIED, UNCOMPLICATED (6) Substance induced mood disorder Code(s): F19.94 - OTH PSYCHOACTIVE SUBSTANCE USE, UNSP W MOOD DISORDER
[2019-11-21] MEDS: NICOTINE 7 MG/24 HOURS TOPICAL PATCH TD SCH (10:07)
[2019-11-21] MEDS: PRENATAL VITAMINS W/ FOLIC ACID TABLET (FP) PO SCH (10:07)
--- NOTE | 2019-11-21 12:12 | PN ---
S CIWA - CIWA Score Nausea/Vomitin-No Nausea/No Vomiting Muscle Tremors: 2 Anxiety: 2 Agitation: 1-Slight > Activity Paroxysmal Sweats: 1-Minimal Palms Moist Orientation: 0-Oriented Tacttile Disturbances: 1-Very Mild Itch/Numbness Auditory Disturbances: 0-None Visual Disturbances: 0-None Headache: 0-None Present CIWA-Ar Total Score: 7 BHS Progress Note (SOAP) Subjective: 44 years old male was admitted on 11/19/19 for alcohol withdrawal sx management treating with valium detox regiment feels better today less tremor mild anxiety discusses aftercare with staff mr willi maier [facility] Objective: 11/21/19 12:13 Vital Signs - 24 hr 11/20/19 11/20/19 11/20/19 12:32 16:48 20:53 Temperature 98.1 F 97.4 F L 98.0 F Pulse Rate 70 78 69 Respiratory 18 18 18 Rate Blood Pressure 107/76 118/79 136/94 O2 Sat by Pulse 96 99 Oximetry (%) 11/21/19 11/21/19 05:43 08:30 Temperature 97.7 F 98.6 F Pulse Rate 85 79 Respiratory 20 16 Rate Blood Pressure 109/79 111/78 O2 Sat by Pulse 99 99 Oximetry (%) Laboratory Tests 11/19/19 11/21/19 19:03 08:10 Syphilis Serology Non-reactive COVID-19 (BRADY) Not detected lab noted Assessment: 11/21/19 12:13 alcohol withdrawal Plan: valium regiment
[2019-11-21] MEDS: THIAMINE HCL 100 MG TABLET (FP) PO SCH (22:43)
[2019-11-21] MEDS: MELATONIN 5 MG TABLETS PO SCH (23:12)
[2019-11-22] MEDS: hydrOXYzine PAMOATE 25 MG CAPSULE (FP) PO SCH (05:32)
[2019-11-22] MEDS ORDERED: diazePAM 5 MG TABLET PO ONE (06:00)
[2019-11-22 09:08] VITALS: BP 102/68; PULSE 72; TEMP 97.3
--- NOTE | 2019-11-22 10:41 | DS ---
[facility] Detox Discharge Summary Admission Date: 11/19/19 Discharge Date: 11/22/19 - History Present History: Alcohol Dependence Additional Comments: 44 years old male was admitted on 11/19/19 for alcohol withdrawal sx management treated with valium detox regiment seen by psychiatrist no medical intervention mr márquez has completed the valium detox regiment and is tolerated well General Appearance: Yes: Within Normal Limits, No Apparent Distress, Nourished, Appropriately Dressed Respiratory: Yes: Within Normal Limits, Lungs Clear, Normal Breath Sounds, No Accessory Muscle Use Cardiology: Yes: Regular Rhythm, Regular Rate Abdominal: Yes: Within Normal Limits, Normal Bowel Sounds, Non Tender, Soft Extremities: Yes: Within Normal Limits, Normal Inspection, Non-Tender Integumentary: Yes: Within Normal Limits, Normal Color, Warm Pertinent Past History: time for discharge 34 minutes - Physical Exam Results Vital Signs: Vital Signs Temperature 97.3 F L 11/22/19 08:30 Pulse Rate 72 11/22/19 08:30 Respiratory Rate 18 11/22/19 08:30 Blood Pressure 102/68 11/22/19 08:30 O2 Sat by Pulse Oximetry (%) 97 11/22/19 08:30 Pertinent Admission Physical Exam Findings: alcohol withdrawal Laboratory Tests 11/19/19 11/21/19 19:03 08:10 Syphilis Serology Non-reactive COVID-19 ([facility]) Not detected Vital Signs - 24 hr 11/21/19 11/21/19 11/22/19 16:49 20:34 06:39 Temperature 97.7 F 98.0 F 97.5 F L Pulse Rate 78 61 68 Respiratory 18 18 18 Rate Blood Pressure 119/81 123/76 104/69 O2 Sat by Pulse 99 97 97 Oximetry (%) 11/22/19 08:30 Temperature 97.3 F L Pulse Rate 72 Respiratory 18 Rate Blood Pressure 102/68 O2 Sat by Pulse 97 Oximetry (%) - Treatment Hospital Course: Detox Protocol Followed, Detoxed Safely, Responded well, Discharged Condition Good, Rehab Referral Accepted Patient has Accepted a Rehab Referral to: [facility] - Medication Discharge Medications: Ambulatory Orders clonazePAM [Klonopin -] mg PO PRN PRN 11/18/19 - Diagnosis (1) Alcohol use disorder Status: Acute (2) Nicotine dependence Status: Acute Qualifiers: Nicotine product type: cigarettes Substance use status: in withdrawal Qualified Code(s): F17.213 - Nicotine dependence, cigarettes, with withdrawal (3) Substance induced mood disorder Status: Suspected - AMA Did Patient Leave Against Medical Advice: No CIWA Score - CIWA Score Nausea/Vomitin-No Nausea/No Vomiting Muscle Tremors: 1-None Visible, but [place] Anxiety: 1-Mildly Anxious Agitation: 0-Normal Activity Paroxysmal Sweats: 1-Minimal Palms Moist Orientation: 0-Oriented Tacttile Disturbances: 0-None Auditory Disturbances: 0-None Visual Disturbances: 0-None Headache: 0-None Present CIWA-Ar Total Score: 3
== END 2019-11-22 10:22 | disposition home or self-care (01) | DRG 774 ==
LOC: YASAS 15:05 → Y3N 18:37
PROVIDERS: ADMIT Allergy & Immunology; ATTEND Allergy & Immunology
PROC: HZ2ZZZZ Detoxification Services for Substance Abuse Treatment (ICD-10-PCS; principal; 2019-11-19)
DX: F10.230 Alcohol dependence with withdrawal, uncomplicated (principal); F14.20 Cocaine dependence, uncomplicated; F12.20 Cannabis dependence, uncomplicated; F16.10 Hallucinogen abuse, uncomplicated; F17.210 Nicotine dependence, cigarettes, uncomplicated; F19.24 Other psychoactive substance dependence with psychoactive substance-induced mood disorder; I10 Essential (primary) hypertension; Z56.0 Unemployment, unspecified; Z59.0 Homelessness; Z91.018 Allergy to other foods
CPT/HCPCS: 36415; 86780; U0003